=== PATIENT | male | born 1985 | race Caucasian/White ===

== ENCOUNTER 2017-12-02 03:56 | Emergency (ER) | payer SELFPAY ==
[2017-12-02 04:02] VITALS: BP 120/76
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
== END 2017-12-02 04:16 ==
DX: F10.129 Alcohol abuse with intoxication, unspecified (principal)